=== PATIENT | female | born 1965 | race Hispanic/Latino ===

== ENCOUNTER 2016-12-16 11:30 | Day surgery (SDC) | payer OTHER ==
[~2016-12-16] VITALS: Ht 160 cm; Wt 63.0 kg
[~2016-12-16 11:30] MED LIST: HYDR30CR76 RC; KETO5DRO60 OP; PHEN28OI6 RECTAL; RANI150C4 PO; Sodium Chloride LOK Flush 10 mL Syringe IV PRN; fentaNYL-PF 50 mCg/mL 2 mL Inj IVPUSH PRN
[2016-12-16 11:59] VITALS: BP 124/68; PULSE 70; RESP 16; O2SAT 96
[2016-12-16] MEDS: 0.9% Sodium Chloride 1,000 ML IV PRN ×2 (12:26→13:01)
[2016-12-16 13:08] VITALS: BP 117/69; PULSE 78; RESP 14; O2SAT 94
[2016-12-16 13:23] VITALS: BP 100/66; PULSE 67; RESP 12; O2SAT 96
--- NOTE | 2016-12-16 13:38 | PCM.ENDEGD ---
EGD Date of Service: Dec 16, 2016 Physician Volodymyr Coombs MD Pre Procedure Diagnosis: Abdominal pain and reflux. Post Procedure Dx & Findings: Atrophic gastritis Procedure Esophagogastroduodenoscopy PROCEDURE IN DETAIL: After proper sedation, Olympus video endoscope was inserted into patient's mouth and esophagus was successfully intubated. Scope introduced esophagus. Esophagus showed normal shiny whitish mucosa consistent with squamous cell component. Z line was intact at 39 cm from the incisors. Scope advanced to the stomach. Stomach showed normal shiny mucosa with normal appearing rugae folds without any ulcer mass erosion. However in the antrum, there was mucosa that appeared to be atrophic with minimal edema. Biopsies obtained. Cardia fundus body antrum pylorus were all visualized. Retroflexion was done. Stomach was easily inflated and deflatable using air. Scope further events to the distal duodenum. Duodenum revealed normal villous structures with normal appearing folds without any mass ulcer erosion. Impression Atrophic antritis Recommendation Await biopsy Colonoscopy Follow-up with Dr. Mcarthur in the GI clinic. Presedation Assessment Risks and Benefits Informed consent was obtained from the patient after all risks and benefits including but not limited to drug reaction, infection, pain, bleeding, perforation, as well as alternatives were discussed. Patient monitoring Continuous pulse oximetry, cardiac monitoring, blood pressure monitoring, IV access, and oxygen at 2L per nasal cannula. Periprocedural Fentanyl: Fentanyl 100mcg Incrementally Midazolam: Midazolam 5mg Incrementally Complications There were no periprocedural complications identified. Post Procedure Plan Post Procedure Recommendations 1. Restrict activities today. 2. Resume normal activities in the morning. 3. Resume medications. 4. GERD behavioral modification: - Avoid fatty, acidic, spicy, large meals - Do not lie down after meals - Do not eat or drink anything for at least 2 1/2 hours before going to bed at night - Discontinue tobacco and alcohol - Decrease or avoid caffeine - Avoid chocolate and mints - Decrease weight - Avoid aspirin and non steroidal anti-inflammatory agents (NSAID) such as Aleve, Advil, Mobic, Naproxen, Ibuprofen, etc 5. Add proton pump inhibitor. Take 30 minutes before 1st meal of the day. 6. Patient informed of normal post procedure side effects as bloating, drowsiness, blood streaking in the stool 7. If gastric biopsy reveal H.pylori, continue with appropriate treatment 8. If small bowel biopsy reveals celiac, continue with appropriate treatment 9. Please don't hesitate to call me with any questions Volodymyr Coombs MD Dec 16, 2016 13:38
--- NOTE | 2016-12-18 19:00 | PATH ---
SURGICAL PATHOLOGY Attending Physician:Volodymyr Coombs M.D. CASE STATUS: Signed Out PATIENT NAME: RHONDA MCDONALD PID: [id number] : 1965 DATE COLLECTED:12/16/2016 19:40 SPECIMEN: Stomach, Antrum, Biopsy CLINICAL HISTORY: ABDOMINAL PAIN 1). ANTRUM BIOPSY FINAL DIAGNOSIS: Antrum Biopsy: Antral mucosa with chronic active gastritis. Intestinal metaplasia is present. Negative for dysplasia and malignancy. Organisms morphologically consistent with H. pylori are present by immunohistochemistry studies. ICD10: K29.7 GROSS DESCRIPTION: The specimen is received in one formalin filled container labeled with the patient's name, sublabeled "antrum" and consists of 3 portions of tissue which aggregate to 0.3 x 0.3 x 0.2 CM. The specimen is entirely submitted in one cassette. 12/16/2016 DAC MICRO DESCRIPTION: IMMUNOHISTOCHEMISTRY: Block 1A: H. pylori: Positive. * This test was developed and its performance characteristics determined by [email or web address]. It has not been cleared or approved by the U.[place]. Food and Drug Administration. The FDA has determined that such clearance or approval is not necessary. This test is used for clinical purposes. It should not be regarded as investigational or for research. ICD-9 CODES: CPT CODES: 1: 15530, 86490 Electronically Signed Out Francoise Wright MD [facility] [address], [place] [address] Technical component performed at [facility], [address], [place], [address]
== END 2016-12-16 23:59 | disposition home or self-care (01) ==
LOC: END 11:30
PROVIDERS: ATTEND Internal Medicine
DX: K21.9 Gastro-esophageal reflux disease without esophagitis (principal); K29.50 Unspecified chronic gastritis without bleeding; R10.9 Unspecified abdominal pain; B96.81 Helicobacter pylori [H. pylori] as the cause of diseases classified elsewhere
CPT/HCPCS: 43239; G0500; J7030